=== PATIENT | female | born 1965 | race Two or more races ===

== ENCOUNTER 2017-06-15 11:40 | Emergency (ER) | payer SELFPAY ==
[2017-06-15] MEDS: ONDANSETRON ODT 4 MG TAB.RAPDIS. PO (13:34)
[2017-06-15] MEDS: ACETAMINOPHEN 500 MG TABLET PO (13:35)
== END 2017-06-15 15:36 | disposition home or self-care (01) ==
LOC: ER 11:40
DX: S06.0X1A Concussion with loss of consciousness of 30 minutes or less, initial encounter (principal); M25.551 Pain in right hip; M54.2 Cervicalgia; M25.561 Pain in right knee; G40.909 Epilepsy, unspecified, not intractable, without status epilepticus; E11.9 Type 2 diabetes mellitus without complications; I10 Essential (primary) hypertension; Z90.710 Acquired absence of both cervix and uterus; Z90.49 Acquired absence of other specified parts of digestive tract; W01.198A Fall on same level from slipping, tripping and stumbling with subsequent striking against other object, initial encounter; Y93.89 Activity, other specified; Y92.512 Supermarket, store or market as the place of occurrence of the external cause; Y99.8 Other external cause status
CPT/HCPCS: 70450; 72125; 73502; 73552; 73564; 99284-25; Q0162

== ENCOUNTER 2018-03-09 18:32 | Inpatient (IN) | payer SELFPAY ==
[~2018-03-09] VITALS: Ht 160 cm; Wt 72.6 kg
[2018-03-09] MEDS: IV NORMAL SALINE 1000ML BAG 1,000 ML IV SCH (01:16)
[~2018-03-09 18:32] MED LIST: LEVE500T56 PO; LOVA20TA2 PO; METF10007 PO; PANT40TA5 PO
[2018-03-09] MEDS ORDERED: IV NORMAL SALINE 1000ML BAG 1,000 ML IV ONE (19:00)
[2018-03-09] MEDS ORDERED: levETIRAcetam 500 MG TABLET PO STA (19:07)
--- NOTE | 2018-03-09 19:22 | PHYS DOC ---
Past Medical History Past Medical History: Diabetes-Type II, Hypertension, Seizure Additional Past Medical Histor: epilepsy Past Surgical History: Appendectomy, , Hysterectomy Alcohol Use: None Drug Use: None Adult General Chief Complaint Chief Complaint: SEIZURE HPI HPI Patient is a 52 year old Female who presents with having a witnessed tonic- clonic full body seizure that lasted 3 minutes at home. Family is here with her and they also witnessed the seizure at home. They state that she did not hit her head did not vomit and is not incontinent. Family states that after the seizure she was postictal but patient is alert and oriented 4 and acting like herself now. Review of Systems Review of Systems Constitutional: Denies fever or chills [] Eyes: Denies change in visual acuity, redness, or eye pain [] HENT: Denies nasal congestion or sore throat [] Respiratory: Denies cough or shortness of breath [] Cardiovascular: No additional information not addressed in HPI [] GI: Denies abdominal pain, nausea, vomiting, bloody stools or diarrhea [] : Denies dysuria or hematuria [] Musculoskeletal: Denies back pain or joint pain [] Integument: Denies rash or skin lesions [] Neurologic: Denies headache, focal weakness or sensory changes. Seizure today. [] Endocrine: Denies polyuria or polydipsia [] All other systems were reviewed and found to be within normal limits, except as documented in this note. Current Medications Current Medications Current Medications Medications (Trade) Dose Ordered Sig/Ron Start Time Stop Time Status Last Admin Dose Admin Fentanyl Citrate (Fentanyl 2ml Vial) 50 mcg PRN Q2HR PRN 03/09/18 19:45 03/10/18 19:44 Levetiracetam (Keppra) 500 mg 1X STAT 03/09/18 19:07 03/09/18 19:15 DC 03/09/18 19:37 500 MG Lorazepam (Ativan) 0.5 mg 1X ONCE 03/09/18 19:30 03/09/18 19:31 DC 03/09/18 19:38 0.5 MG Ondansetron HCl (Zofran) 4 mg PRN Q8HRS PRN 03/09/18 19:45 03/10/18 19:44 Sodium Chloride 1,000 ml @ 75 mls/hr [id number] 03/09/18 19:33 03/10/18 19:32 Allergies Allergies Allergies Coded Allergies Type Severity Reaction Last Updated Verified No Known Drug Allergies 05/15/17 No Physical Exam Physical Exam Constitutional: Well developed, well nourished, no acute distress, non-toxic appearance. [] HENT: Normocephalic, atraumatic, bilateral external ears normal, oropharynx moist, no oral exudates, nose normal. [] Eyes: PERRLA, EOMI, conjunctiva normal, no discharge. [] Neck: Normal range of motion, no tenderness, supple, no stridor. [] Cardiovascular:Heart rate regular rhythm, no murmur [] Lungs & Thorax: Bilateral breath sounds clear to auscultation [] Abdomen: Bowel sounds normal, soft, no tenderness, no masses, no pulsatile masses. [] Skin: Warm, dry, no erythema, no rash. [] Back: No tenderness, no CVA tenderness. [] Extremities: No tenderness, no cyanosis, no clubbing, ROM intact, no edema. [] Neurologic: Alert and oriented X 3, normal motor function, normal sensory function, no focal deficits noted. [] Psychologic: Affect normal, judgement normal, mood normal. [] Current Patient Data Vital Signs Vital Signs Date Time Temp Pulse Resp B/P (MAP) Pulse Ox O2 Delivery O2 Flow Rate FiO2 03/09/18 18:32 98.8 110 18 127/76 (93) 96 Room Air 98.8 Lab Values Laboratory Tests Test 03/09/18 19:12 03/09/18 19:52 Glucose (Fingerstick) 257 mg/dL (70-99) H White Blood Count 14.6 x10^3/uL (4.0-11.0) H Red Blood Count 4.56 x10^6/uL (3.50-5.40) Hemoglobin 13.5 g/dL (12.0-15.5) Hematocrit 38.4 % (36.0-47.0) Mean Corpuscular Volume 84 fL (79-100) Mean Corpuscular Hemoglobin 30 pg (25-35) Mean Corpuscular Hemoglobin Concent 35 g/dL (31-37) Red Cell Distribution Width 13.1 % (11.5-14.5) Platelet Count 172 x10^3/uL (140-400) Neutrophils (%) (Auto) 88 % (31-73) H Lymphocytes (%) (Auto) 7 % (24-48) L Monocytes (%) (Auto) 5 % (0-9) Eosinophils (%) (Auto) 0 % (0-3) Basophils (%) (Auto) 0 % (0-3) Neutrophils # (Auto) 12.8 x10^3uL (1.8-7.7) H Lymphocytes # (Auto) 1.0 x10^3/uL (1.0-4.8) Monocytes # (Auto) 0.7 x10^3/uL (0.0-1.1) Eosinophils # (Auto) 0.0 x10^3/uL (0.0-0.7) Basophils # (Auto) 0.1 x10^3/uL (0.0-0.2) Segmented Neutrophils % 91 % (35-66) H Lymphocytes % 7 % (24-48) L Monocytes % 2 % (0-10) Platelet Estimate Adequate (ADEQUATE) Sodium Level 138 mmol/L (136-145) Potassium Level 3.7 mmol/L (3.5-5.1) Chloride Level 100 mmol/L (98-107) Carbon Dioxide Level 29 mmol/L (21-32) Anion Gap 9 (6-14) Blood Urea Nitrogen 13 mg/dL (7-20) Creatinine 0.7 mg/dL (0.6-1.0) Estimated GFR (Cockcroft-Gault) 88.2 BUN/Creatinine Ratio 19 (6-20) Glucose Level 249 mg/dL (70-99) H Lactic Acid Level 1.7 mmol/L (0.4-2.0) Calcium Level 9.3 mg/dL (8.5-10.1) Total Bilirubin 0.7 mg/dL (0.2-1.0) Aspartate Amino Transferase (AST) 13 U/L (15-37) L Alanine Aminotransferase (ALT) 19 U/L (14-59) Alkaline Phosphatase 94 U/L (46-116) Total Protein 7.5 g/dL (6.4-8.2) Albumin 3.3 g/dL (3.4-5.0) L Albumin/Globulin Ratio 0.8 (1.0-1.7) L Serum Test, Qualitative Negative (NEG) Ethyl Alcohol Level < 10 mg/dL (0-10) Laboratory Tests 03/09/18 19:52 Laboratory Tests 03/09/18 19:52 EKG EKG Sinus tachycardia, no STEMI Interpretation Time: [address] Chairez Radiology/Procedures Radiology/Procedures CT HEAD, CHEST XRAY Impressions: [facility] [address] [place] [address] IMAGING REPORT Signed PATIENT: BRIAN FLORES ACCOUNT: [id number] : 1965 LOCATION: ER AGE: 52 SEX: F EXAM STATUS: REG ER ORD. PHYSICIAN: FREDDY MARCUM APRN REASON: SEIZURE PROCEDURE: CT HEAD WO CONTRAST CT scan of the head without contrast 03/09/2018 Clinical History: Seizure. Technique: Unenhanced, contiguous, 5 mm axial sections were obtained through the head. One or more of the following individualized dose reduction techniques were utilized for this study: 1. Automated exposure control. 2. Adjustment of the mA and/or kV according to patient size. 3. Use of iterative reconstruction technique. Findings: Comparison study is dated 06/15/2017. The ventricles and sulci are within normal limits in size and configuration. A 5 mm calcification is seen involving the right posterior frontal lobe, unchanged. No acute parenchymal abnormality is seen. No extra-axial fluid collection is noted. No skull fracture is noted. IMPRESSION: No acute intracranial abnormality is seen. Electronically signed by: Vito Garay MD (03/09/2018 7:40 PM) [facility] DICTATED and SIGNED BY: VITO GARAY MD DATE: 03/09/18 193 Course & Med Decision Making Course & Med Decision Making Patient is a 52 year old Female who presents with having a witnessed tonic- clonic full body seizure that lasted 3 minutes at home. Family is here with her and they also witnessed the seizure at home. They state that she did not hit her head did not vomit and is not incontinent. Family states that after the seizure she was postictal but patient is alert and oriented 4 and acting like herself now. On examination patient is neurologically intact. She denies any pain she is alert and oriented 4. Patient denies any shortness of breath, nausea, vomiting, chest pain. Patient states she has been off her Keppra for the last 2 weeks because she cannot get it refilled because they state that she needed to see the doctor and family states that the patient called and the doctor could not get her in. Patient has a history of seizures, hypertension, diabetes type 2, GERD. Patient's currently supposed be taking lisinopril, metformin, glyburide, Keppra 500 mg. Once a clear to auscultation. Patient denies a headache or neck pain and states she did not hit her head and family states the patient did not hit her head. Patient has no bruising, deformities, swelling in any extremity. Patient has no C-spine or spinal tenderness with palpation. Patient denies any injury and family states that the patient was playing on her bed when this occurred and did not sustain any injuries. The seizures happened at 1745 tonight and family states the last seizure she had like this was 3 months ago. NIH scale is 0. Seizure precautions are intact. Patient is given 500 mg of Keppra which is her usual dose and 0.5mg of Ativan. Glucose finger stick is 257. CT head shows no acute findings. Blood work is unremarkable. Chest xray shows increased interstitial markings but no acute findings and was read by Dr Chairez. I have discussed this patient to Dr Eastman. The patient is admitted with a nuero consult. [] Dragon Disclaimer Dragon Disclaimer This electronic medical record was generated, in whole or in part, using a voice recognition dictation system. Departure Departure Impression: Primary Impression: Seizure Disposition: 09 ADMITTED INPATIENT Admitting Physician: Jammie Eastman Condition: STABLE Referrals: UNKNOWN PCP NAME (PCP) FREDDY MARCUM APRN Mar 09, 2018 19:22
--- NOTE | 2018-03-09 19:43 | RAD ---
CT scan of the head without contrast 03/09/2018 Clinical History: Seizure. Technique: Unenhanced, contiguous, 5 mm axial sections were obtained through the head. One or more of the following individualized dose reduction techniques were utilized for this study: 1. Automated exposure control. 2. Adjustment of the mA and/or kV according to patient size. 3. Use of iterative reconstruction technique. Findings: Comparison study is dated 06/15/2017. The ventricles and sulci are within normal limits in size and configuration. A 5 mm calcification is seen involving the right posterior frontal lobe, unchanged. No acute parenchymal abnormality is seen. No extra-axial fluid collection is noted. No skull fracture is noted. IMPRESSION: No acute intracranial abnormality is seen. Electronically signed by: Vito Garay MD (03/09/2018 7:40 PM) [facility]
[2018-03-09] MEDS ORDERED: fentaNYL PF VIAL 100 MCG/2 ML VIAL IV PRN (19:45)
[2018-03-09] MEDS ORDERED: ONDANSETRON PF 4 MG/2 ML VIAL. IV PRN (19:45)
[2018-03-09 20:02] LABS: BASO # 0.1 x10^3/uL (0.0-0.2); BASO % 0 % (0-3); EOS % 0 % (0-3); HEMATOCRIT 38.4 % (36.0-47.0); HEMOGLOBIN 13.5 g/dL (12.0-15.5); LYMPH % 7 % (24-48); MEAN CORPUSCULAR HEMOGLOBIN 30 pg (25-35); MEAN CORPUSCULAR HGB CONC 35 g/dL (31-37); MEAN CORPUSCULAR VOLUME 84 fL (79-100); MONO # 0.7 x10^3/uL (0.0-1.1); MONO % 5 % (0-9); NEUT # 12.8 x10^3uL (1.8-7.7); NEUT % 88 % (31-73); PLATELET COUNT 172 x10^3/uL (140-400); RED BLOOD COUNT 4.56 x10^6/uL (3.50-5.40); RED CELL DISTRIBUTION WIDTH 13.1 % (11.5-14.5); WHITE BLOOD COUNT 14.6 x10^3/uL (4.0-11.0)
[2018-03-09 20:15] LABS: PREG TEST PT QUAL NEGATIVE (NEG)
[2018-03-09 20:17] LABS: CALCIUM 9.3 mg/dL (8.5-10.1); CREATININE 0.7 mg/dL (0.6-1.0); GFR 88.2; POTASSIUM 3.7 mmol/L (3.5-5.1)
[2018-03-09 20:23] LABS: ALBUMIN 3.3 g/dL (3.4-5.0); ALBUMIN/GLOBULIN RATIO 0.8 (1.0-1.7); TOTAL BILIRUBIN 0.7 mg/dL (0.2-1.0); TOTAL PROTEIN 7.5 g/dL (6.4-8.2)
[2018-03-09 21:00] LABS: % LYMPHS 7 % (24-48); % MONOS 2 % (0-10); % SEGS 91 % (35-66)
[2018-03-09 21:02] LABS: PLT ESTIMATE ADEQUATE (ADEQUATE)
--- NOTE | 2018-03-09 21:39 | EKG ---
[facility] [address] [place] [address] Test Date: 2018-03-09 Test Time: 19:14:26 Pat Name: BRIAN FLORES Department: Room: [facility] Gender: F Nursing Education Specialist: : 1965 Requested By: FREDDY MARCUM Order Number: [id number] Reading MD: Hany Villagran MD Measurements Intervals [place] Rate: 101 P: 85 ID: [id number] QRS: -38 QRSD: 80 T: 27 QT: 342 QTc: 450 Interpretive Statements SINUS TACHYCARDIA Electronically Signed On 03-10-2018 10:10:14 CDT by Hany Villagran MD
[2018-03-09 22:00] VITALS: BP 96/56
[2018-03-09] MEDS ORDERED: ATORVASTATIN CA80 MG PO (22:43)
[2018-03-09] MEDS ORDERED: GLIM4TAB2 PO (22:43)
[2018-03-09] MEDS ORDERED: SERT50TA PO (22:45)
[2018-03-09] MEDS ORDERED: LISI1TAB7 PO (22:46)
--- NOTE | 2018-03-09 23:01 | PDOC1 ---
History and Physical Date of Admission Date of Admission DATE: 03/09/18 TIME: 22:55 History of Present Illness History of Present Illness Ms. Mc is a 52 year old Female admit after a witnessed tonic-clonic full body seizure that lasted 3 minutes at home. Family is here with her and they also witnessed the seizure at home. She did not injure herself, but she has been sleeping hard since. family reports that she doesnt follow with her doctors, and they thought she was out of her Keppra,but we found 2 full bottles in her purse. They report she doens t like to take it as she doesnt want to eat, and thay she is very depressed, only wants to goto the casino, does not work, does not goto the doctor, withdrawn and avoids the family and her grandchildren was alert and oriented in the ER Past Medical History Cardiovascular: HTN, Hyperlipidemia CENTRAL NERVOUS SYSTEM: Seizure GI: No pertinent hx Heme/Onc: No pertinent hx Hepatobiliary: No pertinent hx Psych: No pertinent hx Musculoskeletal: Osteoarthritis Rheumatologic: No pertinent hx Infectious disease: No pertinent hx Renal/: No pertinent hx Endocrine: Diabetes Past Surgical History Past Surgical History: , Hysterectomy Family History Family History: Heart Disease Social History ALCOHOL: none Drugs: None Current Problem List Problem List Problems Medical Problems: (1) Seizure Status: Acute Current Medications Current Medications Current Medications Sodium Chloride 1,000 ml @ 1,000 mls/hr 1X ONCE IV Last administered on at 19:00; Start 03/09/18 at 19:00; Stop 03/09/18 at 19:59; Status DC Levetiracetam (Keppra) 500 mg 1X STAT PO Last administered on 03/09/18at 19:37 ; Start 03/09/18 at 19:07; Stop 03/09/18 at 19:15; Status DC Lorazepam (Ativan) 1 mg 1X ONCE IV ; Start 03/09/18 at 19:15; Stop 03/09/18 at 19:16; Status Cancel Lorazepam (Ativan) 0.5 mg 1X ONCE IV Last administered on 03/09/18at 19:38; Start 03/09/18 at 19:30; Stop 03/09/18 at 19:31; Status DC Ondansetron HCl (Zofran) 4 mg PRN Q8HRS PRN IV NAUSEA/VOMITING; Start 03/09/18 at 19:45; Stop 03/10/18 at 19:44 Fentanyl Citrate (Fentanyl 2ml Vial) 50 mcg PRN Q2HR PRN IV PAIN; Start at 19:45; Stop 03/10/18 at 19:44 Sodium Chloride 1,000 ml @ 75 mls/hr [id number] IV ; Start 03/09/18 at 19:33; Stop 03/10/18 at 19:32 Levetiracetam (Keppra) 500 mg BID PO ; Start 03/10/18 at 00:00 Sertraline HCl (Zoloft) 50 mg DAILY PO ; Start 03/10/18 at 09:00 Atorvastatin Calcium (Lipitor) 80 mg QHS PO ; Start 03/10/18 at 00:00 Non-Formulary Medication (Glimepiride ) 2 tab DAILY PO ; Start 03/10/18 at 09:00 ; Status UNV Non-Formulary Medication (Lisinopril/ Hydrochlorothiazide (Lisinopril-Hctz 20- 25 Mg Tab)) 1 tab DAILY PO ; Start 03/10/18 at 09:00; Status UNV Non-Formulary Medication (Metformin Hcl ) 1,000 mg BIDWMEALS PO ; Start at 08:00; Status UNV Active Scripts Active Pantoprazole Sodium 40 Mg Tablet.dr 40 Mg PO DAILYAC Keppra (Levetiracetam) 500 Mg Tablet 500 Mg PO BID Reported Lisinopril-Hctz 20-25 Mg Tab (Lisinopril/Hydrochlorothiazide) 1 Each Tablet 1 Tab PO DAILY Zoloft (Sertraline Hcl) 50 Mg Tablet 1 Tab PO DAILY Atorvastatin Calcium 80 Mg Tablet 1 Tab PO DAILY Glimepiride 4 Mg Tablet 2 Tab PO DAILY Lovastatin 20 Mg Tablet 20 Mg PO HS Metformin Hcl 1,000 Mg Tablet 1,000 Mg PO BIDWMEALS Allergies Allergies: Coded Allergies: No Known Drug Allergies (Unverified , 05/15/17) ROS General: No: Chills, Night Sweats, Fatigue, Malaise, Appetite, Other PSYCHOLOGICAL ROS: YES: Irritablity, Memory difficulties, Obsessive thoughts, Sleep disturbances; No: Anxiety, Behavioral Disorder, Concentration difficultie, Decreased libido , Depression, Disorientation, Hallucinations, Hostility, Mood Swings, Other Respiratory: No: Cough, Hemoptysis, Orthopnea, Pleuritic Pain, Shortness of breath, SOB with excertion, Sputum Changes, Stridor, Tachypnea, Wheezing, Other Cardiovascular: No Chest Pain, No Palpitations, No Orthopnea, No Paroxysmal Noc. Dyspnea, No Edema, No Lt Headedness, No Other Gastrointestinal: No Nausea, No Vomiting, No Abdominal Pain, No Diarrhea, No Constipation, No Melena, No Hematochezia, No Other Genitourinary: No Dysuria, No Frequency, No Incontinence, No Hematuria, No Retention, No Discharge, No Urgency, No Pain, No Flank Pain, No Other, No , No , No , No , No , No , No Neurological: No Behavorial Changes, No Bowel/Bladder ControlChng, No Confusion , No Dizziness, No Gait Disturbance, No Headaches, No Impaired Coord/balance, No Memory Loss, No Numbness/Tingling, No Seizures, No Speech Problems, No Tremors, No Visual Changes, No Weakness, No Other Skin: Yes Dry Skin Physical Exam General: No acute distress, Other (lethargic post ictal, arouseable, ) HEENT: PERRLA Lungs: Normal air movement Heart: S1S2, RRR, no gallops, no murmurs Extremities: No cyanosis, No edema Skin: No significant lesion Neuro: Normal tone, Cranial nerves 3-12 NL Psych/Mental Status: Other (lethargic, withdrawn, does not talk, reponds but does not follow commands well) Vitals Vitals Vital Signs Date Time Temp Pulse Resp B/P (MAP) Pulse Ox O2 Delivery O2 Flow Rate FiO2 03/09/18 21:30 90 18 99 03/09/18 18:32 98.8 127/76 (93) Room Air 98.8 Labs Labs Laboratory Tests Test 03/09/18 19:12 03/09/18 19:52 Glucose (Fingerstick) 257 mg/dL (70-99) White Blood Count 14.6 x10^3/uL (4.0-11.0) Red Blood Count 4.56 x10^6/uL (3.50-5.40) Hemoglobin 13.5 g/dL (12.0-15.5) Hematocrit 38.4 % (36.0-47.0) Mean Corpuscular Volume 84 fL (79-100) Mean Corpuscular Hemoglobin 30 pg (25-35) Mean Corpuscular Hemoglobin Concent 35 g/dL (31-37) Red Cell Distribution Width 13.1 % (11.5-14.5) Platelet Count 172 x10^3/uL (140-400) Neutrophils (%) (Auto) 88 % (31-73) Lymphocytes (%) (Auto) 7 % (24-48) Monocytes (%) (Auto) 5 % (0-9) Eosinophils (%) (Auto) 0 % (0-3) Basophils (%) (Auto) 0 % (0-3) Neutrophils # (Auto) 12.8 x10^3uL (1.8-7.7) Lymphocytes # (Auto) 1.0 x10^3/uL (1.0-4.8) Monocytes # (Auto) 0.7 x10^3/uL (0.0-1.1) Eosinophils # (Auto) 0.0 x10^3/uL (0.0-0.7) Basophils # (Auto) 0.1 x10^3/uL (0.0-0.2) Segmented Neutrophils % 91 % (35-66) Lymphocytes % 7 % (24-48) Monocytes % 2 % (0-10) Platelet Estimate Adequate (ADEQUATE) Sodium Level 138 mmol/L (136-145) Potassium Level 3.7 mmol/L (3.5-5.1) Chloride Level 100 mmol/L (98-107) Carbon Dioxide Level 29 mmol/L (21-32) Anion Gap 9 (6-14) Blood Urea Nitrogen 13 mg/dL (7-20) Creatinine 0.7 mg/dL (0.6-1.0) Estimated GFR (Cockcroft-Gault) 88.2 BUN/Creatinine Ratio 19 (6-20) Glucose Level 249 mg/dL (70-99) Lactic Acid Level 1.7 mmol/L (0.4-2.0) Calcium Level 9.3 mg/dL (8.5-10.1) Total Bilirubin 0.7 mg/dL (0.2-1.0) Aspartate Amino Transf (AST/SGOT) 13 U/L (15-37) Alanine Aminotransferase (ALT/SGPT) 19 U/L (14-59) Alkaline Phosphatase 94 U/L (46-116) Total Protein 7.5 g/dL (6.4-8.2) Albumin 3.3 g/dL (3.4-5.0) Albumin/Globulin Ratio 0.8 (1.0-1.7) Serum Test, Qualitative Negative (NEG) Ethyl Alcohol Level < 10 mg/dL (0-10) Laboratory Tests Test 03/09/18 19:12 03/09/18 19:52 Glucose (Fingerstick) 257 mg/dL (70-99) White Blood Count 14.6 x10^3/uL (4.0-11.0) Red Blood Count 4.56 x10^6/uL (3.50-5.40) Hemoglobin 13.5 g/dL (12.0-15.5) Hematocrit 38.4 % (36.0-47.0) Mean Corpuscular Volume 84 fL (79-100) Mean Corpuscular Hemoglobin 30 pg (25-35) Mean Corpuscular Hemoglobin Concent 35 g/dL (31-37) Red Cell Distribution Width 13.1 % (11.5-14.5) Platelet Count 172 x10^3/uL (140-400) Neutrophils (%) (Auto) 88 % (31-73) Lymphocytes (%) (Auto) 7 % (24-48) Monocytes (%) (Auto) 5 % (0-9) Eosinophils (%) (Auto) 0 % (0-3) Basophils (%) (Auto) 0 % (0-3) Neutrophils # (Auto) 12.8 x10^3uL (1.8-7.7) Lymphocytes # (Auto) 1.0 x10^3/uL (1.0-4.8) Monocytes # (Auto) 0.7 x10^3/uL (0.0-1.1) Eosinophils # (Auto) 0.0 x10^3/uL (0.0-0.7) Basophils # (Auto) 0.1 x10^3/uL (0.0-0.2) Segmented Neutrophils % 91 % (35-66) Lymphocytes % 7 % (24-48) Monocytes % 2 % (0-10) Platelet Estimate Adequate (ADEQUATE) Sodium Level 138 mmol/L (136-145) Potassium Level 3.7 mmol/L (3.5-5.1) Chloride Level 100 mmol/L (98-107) Carbon Dioxide Level 29 mmol/L (21-32) Anion Gap 9 (6-14) Blood Urea Nitrogen 13 mg/dL (7-20) Creatinine 0.7 mg/dL (0.6-1.0) Estimated GFR (Cockcroft-Gault) 88.2 BUN/Creatinine Ratio 19 (6-20) Glucose Level 249 mg/dL (70-99) Lactic Acid Level 1.7 mmol/L (0.4-2.0) Calcium Level 9.3 mg/dL (8.5-10.1) Total Bilirubin 0.7 mg/dL (0.2-1.0) Aspartate Amino Transf (AST/SGOT) 13 U/L (15-37) Alanine Aminotransferase (ALT/SGPT) 19 U/L (14-59) Alkaline Phosphatase 94 U/L (46-116) Total Protein 7.5 g/dL (6.4-8.2) Albumin 3.3 g/dL (3.4-5.0) Albumin/Globulin Ratio 0.8 (1.0-1.7) Serum Test, Qualitative Negative (NEG) Ethyl Alcohol Level < 10 mg/dL (0-10) VTE Prophylaxis Ordered VTE Prophylaxis Devices: No VTE Pharmacological Prophylaxi: Yes Assessment/Plan Assessment/Plan seizure, post ictal state noncompliance meds, due to major depression major depressive disorder, will consult PAT team, pt has no insurance, and does not like to contact her physicians to make her own appointmetns admit TORRIE PARK MD Mar 09, 2018 23:01
--- NOTE | 2018-03-09 23:50 | RAD ---
PA and lateral chest radiographs 03/09/2018 CLINICAL HISTORY: Syncope earlier today. PA and lateral digital radiographs of the chest were obtained. Comparison study is dated 05/15/2017. The cardiac silhouette is normal in size. The thoracic aorta is mildly tortuous. No acute pulmonary infiltrate is seen. No pleural effusion or pneumothorax is noted. Mild degenerative changes are seen involving the thoracic spine. IMPRESSION: No acute abnormality is seen. Electronically signed by: Vito Garay MD (03/09/2018 11:46 PM) [facility]
[2018-03-10] MEDS ORDERED: ATORVASTATIN CALCIUM 40 MG TABLET. PO SCH
[2018-03-10 03:10] VITALS: BP 111/62
[2018-03-10 07:00] VITALS: BP 108/57
[2018-03-10] MEDS ORDERED: metFORMIN 500 MG TABLET PO SCH (08:00)
[2018-03-10] MEDS: levETIRAcetam 500 MG TABLET PO SCH ×2 (08:31)
[2018-03-10] MEDS: IV NORMAL SALINE 1000ML BAG 1,000 ML IV SCH (08:33)
[2018-03-10] MEDS ORDERED: hydroCHLOROthiazide 25 MG TABLET PO SCH (09:00)
[2018-03-10] MEDS ORDERED: GLIMEPIRIDE 2 MG TABLET. PO SCH (09:00)
[2018-03-10] MEDS ORDERED: LISINOPRIL 20 MG TABLET PO SCH (09:00)
[2018-03-10] MEDS ORDERED: SERTRALINE 50 MG TABLET. PO SCH (09:00)
[2018-03-10 11:00] VITALS: BP 106/61
--- NOTE | 2018-03-10 11:04 | PDOC2 ---
NEUROLOGY CONSULT Date of Admission Date of Admission DATE: 03/10/18 TIME: 10:57 Reason for Consult Reason for Consult: Epilepsy Referring Physician Referring Physician: Dr. Eastman Source Source: Caregiver (Daughter), Chart review, Patient History of Present Illness History of Present Illness The patient is a 52-year-old female who had a seizure last night. I last saw her 10 months ago here in the hospital for epilepsy. She has been depressed and not taking her medications. I started on levetiracetam, but she does not remember when or why she stopped it. Her daughter says the patient Nicho does not want to take medications. She had a prior seizure 3 years ago evaluated at [facility] with MRI and EEG. We sent for the records last time but never received them. She does not know of any provocation for the seizure. There is no history of stroke or head injury. Past Medical History Cardiovascular: HTN, Hyperlipidemia CENTRAL NERVOUS SYSTEM: Seizure Endocrine: Diabetes Past Surgical History Past Surgical History: , Hysterectomy Family History Family History: Other ( negative for seizures) Social History Social History , no alcohol or tobacco Current Medications Current Medications Current Medications Sodium Chloride 1,000 ml @ 1,000 mls/hr 1X ONCE IV Last administered on at 19:00; Start 03/09/18 at 19:00; Stop 03/09/18 at 19:59; Status DC Levetiracetam (Keppra) 500 mg 1X STAT PO Last administered on 03/09/18at 19:37 ; Start 03/09/18 at 19:07; Stop 03/09/18 at 19:15; Status DC Lorazepam (Ativan) 1 mg 1X ONCE IV ; Start 03/09/18 at 19:15; Stop 03/09/18 at 19:16; Status Cancel Lorazepam (Ativan) 0.5 mg 1X ONCE IV Last administered on 03/09/18at 19:38; Start 03/09/18 at 19:30; Stop 03/09/18 at 19:31; Status DC Ondansetron HCl (Zofran) 4 mg PRN Q8HRS PRN IV NAUSEA/VOMITING; Start 03/09/18 at 19:45; Stop 03/10/18 at 19:44 Fentanyl Citrate (Fentanyl 2ml Vial) 50 mcg PRN Q2HR PRN IV PAIN; Start at 19:45; Stop 03/10/18 at 19:44 Sodium Chloride 1,000 ml @ 75 mls/hr [id number] IV Last administered on at 08:33; Start 03/09/18 at 19:33; Stop 03/10/18 at 19:32 Levetiracetam (Keppra) 500 mg BID PO Last administered on 03/10/18at 08:31; Start 03/10/18 at 00:00 Sertraline HCl (Zoloft) 50 mg DAILY PO Last administered on 03/10/18at 08:31; Start 03/10/18 at 09:00 Atorvastatin Calcium (Lipitor) 80 mg QHS PO ; Start 03/10/18 at 00:00 Glimepiride (Amaryl) 8 mg DAILY PO ; Start 03/10/18 at 09:00 Lisinopril (Prinivil) 20 mg DAILY PO Last administered on 03/10/18at 08:31; Start 03/10/18 at 09:00 Metformin HCl (Glucophage) 1,000 mg BIDWMEALS PO ; Start 03/10/18 at 08:00 Hydrochlorothiazide (Hydrodiuril) 25 mg DAILY PO Last administered on at 08:31; Start 03/10/18 at 09:00 Influenza Virus Vaccine (Afluria Trivalent [id number] Syringe) 0.5 ml ONCE ONCE VAX IM ; Start 03/10/18 at 09:00; Stop 03/10/18 at 09:01; Status DC Active Scripts Active Pantoprazole Sodium 40 Mg Tablet.dr 40 Mg PO DAILYAC Keppra (Levetiracetam) 500 Mg Tablet 500 Mg PO BID Reported Lisinopril-Hctz 20-25 Mg Tab (Lisinopril/Hydrochlorothiazide) 1 Each Tablet 1 Tab PO DAILY Zoloft (Sertraline Hcl) 50 Mg Tablet 1 Tab PO DAILY Atorvastatin Calcium 80 Mg Tablet 1 Tab PO DAILY Glimepiride 4 Mg Tablet 2 Tab PO DAILY Lovastatin 20 Mg Tablet 20 Mg PO HS Metformin Hcl 1,000 Mg Tablet 1,000 Mg PO BIDWMEALS Allergies Allergies: Coded Allergies: No Known Drug Allergies (Unverified , 05/15/17) ROS Review of System Negative for fevers, chills, weight loss, shortness of breath, chest pain, indigestion, hematochezia, melena, dysuria. Full 14-point review systems is negative. Physical Exam Physical Examination General: Well-developed, well-nourished, female, in no acute distress HEENT: Normocephalic andatraumatic. Temporal arteriespulsatile and nontender. Neck: Supple without bruit, no meningismus Musculoskeletal: Stability:see neurologic. Gait exam:see neurologic. Tone:see neurologic. Strength:see neurologic. Neurological: Mental Status:intact, orientation, memory, attention span/concentration, language, fund of knowledge normal. Cranial Nerves:Pupils equal and reactive to light, extraocular movements areintact, visual brown are full to confrontation. Facial sensation is normal. There is no facial asymmetry. Vestibulo-ocular reflex is intact. Palate elevates and tongue protrudes in midline. All other cranial related problems are negative except as mentioned before.Reflexes:2+ and symmetric with flexor plantar responses. Motor:5/5 strength with normal tone and bulk. Coordination:Finger-nose finger and heel-to -bansal testing are normal. Rapid alternating movements and fine finger movements are intact. Gait:Normal, including tandem. Sensory:Normal pinprick, vibration , light touch, proprioception. Vitals VITALS Vital Signs Date Time Temp Pulse Resp B/P (MAP) Pulse Ox O2 Delivery O2 Flow Rate FiO2 03/10/18 08:31 79 108/57 03/10/18 08:00 Nasal Cannula 2.0 03/10/18 07:00 98.6 20 97 98.6 Labs Labs Laboratory Tests Test 03/09/18 19:12 03/09/18 19:52 Glucose (Fingerstick) 257 mg/dL (70-99) White Blood Count 14.6 x10^3/uL (4.0-11.0) Red Blood Count 4.56 x10^6/uL (3.50-5.40) Hemoglobin 13.5 g/dL (12.0-15.5) Hematocrit 38.4 % (36.0-47.0) Mean Corpuscular Volume 84 fL (79-100) Mean Corpuscular Hemoglobin 30 pg (25-35) Mean Corpuscular Hemoglobin Concent 35 g/dL (31-37) Red Cell Distribution Width 13.1 % (11.5-14.5) Platelet Count 172 x10^3/uL (140-400) Neutrophils (%) (Auto) 88 % (31-73) Lymphocytes (%) (Auto) 7 % (24-48) Monocytes (%) (Auto) 5 % (0-9) Eosinophils (%) (Auto) 0 % (0-3) Basophils (%) (Auto) 0 % (0-3) Neutrophils # (Auto) 12.8 x10^3uL (1.8-7.7) Lymphocytes # (Auto) 1.0 x10^3/uL (1.0-4.8) Monocytes # (Auto) 0.7 x10^3/uL (0.0-1.1) Eosinophils # (Auto) 0.0 x10^3/uL (0.0-0.7) Basophils # (Auto) 0.1 x10^3/uL (0.0-0.2) Segmented Neutrophils % 91 % (35-66) Lymphocytes % 7 % (24-48) Monocytes % 2 % (0-10) Platelet Estimate Adequate (ADEQUATE) Sodium Level 138 mmol/L (136-145) Potassium Level 3.7 mmol/L (3.5-5.1) Chloride Level 100 mmol/L (98-107) Carbon Dioxide Level 29 mmol/L (21-32) Anion Gap 9 (6-14) Blood Urea Nitrogen 13 mg/dL (7-20) Creatinine 0.7 mg/dL (0.6-1.0) Estimated GFR (Cockcroft-Gault) 88.2 BUN/Creatinine Ratio 19 (6-20) Glucose Level 249 mg/dL (70-99) Lactic Acid Level 1.7 mmol/L (0.4-2.0) Calcium Level 9.3 mg/dL (8.5-10.1) Total Bilirubin 0.7 mg/dL (0.2-1.0) Aspartate Amino Transf (AST/SGOT) 13 U/L (15-37) Alanine Aminotransferase (ALT/SGPT) 19 U/L (14-59) Alkaline Phosphatase 94 U/L (46-116) Total Protein 7.5 g/dL (6.4-8.2) Albumin 3.3 g/dL (3.4-5.0) Albumin/Globulin Ratio 0.8 (1.0-1.7) Serum Test, Qualitative Negative (NEG) Ethyl Alcohol Level < 10 mg/dL (0-10) Laboratory Tests Test 03/09/18 19:12 03/09/18 19:52 Glucose (Fingerstick) 257 mg/dL (70-99) White Blood Count 14.6 x10^3/uL (4.0-11.0) Red Blood Count 4.56 x10^6/uL (3.50-5.40) Hemoglobin 13.5 g/dL (12.0-15.5) Hematocrit 38.4 % (36.0-47.0) Mean Corpuscular Volume 84 fL (79-100) Mean Corpuscular Hemoglobin 30 pg (25-35) Mean Corpuscular Hemoglobin Concent 35 g/dL (31-37) Red Cell Distribution Width 13.1 % (11.5-14.5) Platelet Count 172 x10^3/uL (140-400) Neutrophils (%) (Auto) 88 % (31-73) Lymphocytes (%) (Auto) 7 % (24-48) Monocytes (%) (Auto) 5 % (0-9) Eosinophils (%) (Auto) 0 % (0-3) Basophils (%) (Auto) 0 % (0-3) Neutrophils # (Auto) 12.8 x10^3uL (1.8-7.7) Lymphocytes # (Auto) 1.0 x10^3/uL (1.0-4.8) Monocytes # (Auto) 0.7 x10^3/uL (0.0-1.1) Eosinophils # (Auto) 0.0 x10^3/uL (0.0-0.7) Basophils # (Auto) 0.1 x10^3/uL (0.0-0.2) Segmented Neutrophils % 91 % (35-66) Lymphocytes % 7 % (24-48) Monocytes % 2 % (0-10) Platelet Estimate Adequate (ADEQUATE) Sodium Level 138 mmol/L (136-145) Potassium Level 3.7 mmol/L (3.5-5.1) Chloride Level 100 mmol/L (98-107) Carbon Dioxide Level 29 mmol/L (21-32) Anion Gap 9 (6-14) Blood Urea Nitrogen 13 mg/dL (7-20) Creatinine 0.7 mg/dL (0.6-1.0) Estimated GFR (Cockcroft-Gault) 88.2 BUN/Creatinine Ratio 19 (6-20) Glucose Level 249 mg/dL (70-99) Lactic Acid Level 1.7 mmol/L (0.4-2.0) Calcium Level 9.3 mg/dL (8.5-10.1) Total Bilirubin 0.7 mg/dL (0.2-1.0) Aspartate Amino Transf (AST/SGOT) 13 U/L (15-37) Alanine Aminotransferase (ALT/SGPT) 19 U/L (14-59) Alkaline Phosphatase 94 U/L (46-116) Total Protein 7.5 g/dL (6.4-8.2) Albumin 3.3 g/dL (3.4-5.0) Albumin/Globulin Ratio 0.8 (1.0-1.7) Serum Test, Qualitative Negative (NEG) Ethyl Alcohol Level < 10 mg/dL (0-10) Images Images CT head: The ventricles and sulci are within normal limits in size and configuration. A 5 mm calcification is seen involving the right posterior frontal lobe, unchanged. No acute parenchymal abnormality is seen. No extra-axial fluid collection is noted. No skull fracture is noted. Assessment/Plan Assessment/Plan Impression: Epilepsy Noncompliance Apparent depression Recommendations: Continue levetiracetam. The patient denies the allergic reaction and is reasonable to try it again. I emphasized compliance Apparently main purpose of admission is for the psychiatric assessment team to see her. Hold off on repeating epilepsy workup already done 3 years ago. Thank you for letting me help the patient's care. RAMON HAMPTON MD Mar 10, 2018 11:04
[2018-03-10] MEDS ORDERED: SERT50TA PO (14:45)
[2018-03-10] MEDS ORDERED: HYDR25TA9 PO (14:45)
[2018-03-10] MEDS ORDERED: LEVE500T56 PO (14:45)
[2018-03-10 15:00] VITALS: BP 96/44
== END 2018-03-10 16:20 | disposition home or self-care (01) | DRG 101 ==
LOC: ER 18:32 → 6 SOUTH 19:28
PROVIDERS: ADMIT Internal Medicine; ATTEND Internal Medicine
DX: G40.409 Other generalized epilepsy and epileptic syndromes, not intractable, without status epilepticus (principal); E11.9 Type 2 diabetes mellitus without complications; E78.5 Hyperlipidemia, unspecified; F32.9 Major depressive disorder, single episode, unspecified; I10 Essential (primary) hypertension; M19.90 Unspecified osteoarthritis, unspecified site; Z90.49 Acquired absence of other specified parts of digestive tract; Z90.710 Acquired absence of both cervix and uterus; Z91.19 Patient's noncompliance with other medical treatment and regimen; Z79.899 Other long term (current) drug therapy
CPT/HCPCS: 70450; 71046; 80053; 82962; 83605; 84703; 85007; 85025; 90471; 90756; 93005; 96374; G0480; J2060; J7030; 99285-25; Q2035